=== PATIENT | male | born 1935 | race Caucasian/White ===

== ENCOUNTER 2019-08-05 17:44 | Emergency (ER) | payer OTHER, MEDICARE ==
[~2019-08-05] VITALS: Ht 177.8 cm; Wt 79.4 kg
[~2019-08-05 17:44] MED LIST: AMLO5TAB4 PO; IBUP-1970 PO; LIP20 PO; METH-34 PO
[2019-08-05 17:47] VITALS: BP_SYST 135
--- NOTE | 2019-08-05 17:53 | NUR ---
Patient to ER bed H1 to gown for evaluation. Side rails up.
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
--- NOTE | 2019-08-05 18:44 | NUR ---
Pt moved to bed 07
--- NOTE | 2019-08-05 19:00 | NUR ---
ER Dr. Correa at bedside examining patient.
[2019-08-05] MEDS ORDERED: BACITRACIN 1 GM OINT TP ONE (19:15)
[2019-08-05 19:27] VITALS: BP_SYST 132
--- NOTE | 2019-08-05 19:27 | NUR ---
Patient given written and verbal discharge instructions and verbalizes understanding. ER MD discussed with patient the results and treatment provided. Patient in stable condition. ID arm band removed. Rx of [place] 5-325mg given. Patient educated on pain management and to follow up with PMD. Pain Scale 0/10. Opportunity for questions provided and answered. Medication side effect fact sheet provided.
== END 2019-08-05 19:27 | disposition home or self-care (01) ==
LOC: SED 17:44
DX: S51.811A Laceration without foreign body of right forearm, initial encounter (principal); S51.812A Laceration without foreign body of left forearm, initial encounter; I10 Essential (primary) hypertension; Z88.6 Allergy status to analgesic agent; Z88.8 Allergy status to other drugs, medicaments and biological substances; V43.52XA Car driver injured in collision with other type car in traffic accident, initial encounter; Y93.89 Activity, other specified; Y92.89 Other specified places as the place of occurrence of the external cause; Y99.8 Other external cause status
CPT/HCPCS: 99283